=== PATIENT | female | born 1985 | race Caucasian/White ===

== ENCOUNTER 2018-04-26 15:36 | Outpatient (CLI) | payer BC ==
[~2018-04-26 15:36] MED LIST: Gadobenate Dimeglumine 529 MG/1 ML (20ML VIAL) ONE
--- NOTE | 2018-04-26 17:58 | MRI ---
MRI BRAIN AND SELLA WITH AND WITHOUT CONTRAST: Date: 04/26/18 HISTORY: Hyperprolactinemia in 32-year-old female. TECHNIQUE: Multiple sequences obtained in axial, sagittal, and coronal planes; pre and post IV injection of gado linium-based contrast agent: 8 mm MultiHance. In addition to standard whole brain sequences, additional thin slices were obtained through the sella turcica, pre and postcontrast. FINDINGS: The ventricles are normal in size and configuration. There is no major intraaxial signal abnormality , restricted diffusion, abnormal intraaxial enhancement, mass, midline shift or any other mass effect , recent intraaxial hemorrhage, or extraaxial fluid collection. In the left side of the sella turcica, there is an approximately 0.7 x 0.5 cm structure which is T2 h yperintense and T1 hyperintense relative to the rest of the pituitary tissue on precontrast images, a nd has delayed or decreased enhancement relative to the rest of the pituitary tissue. There is no sup rasellar mass. Optic chiasm is normal. Infundibular stalk is midline and normal in thickness. [place] us sinuses are normal. IMPRESSION: 1. Evidence for left-sided pituitary microadenoma. 2. The brain is normal. jn[] POS: LULI
== END 2018-04-26 15:37 | disposition home or self-care (01) ==
LOC: MRI 15:36
PROVIDERS: ATTEND Student in an Organized Health Care Education/Training Program
DX: E22.1 Hyperprolactinemia (principal); D35.2 Benign neoplasm of pituitary gland
CPT/HCPCS: 70553; A9579

== ENCOUNTER 2018-12-14 06:36 | Outpatient (CLI) | payer BC ==
--- NOTE | 2018-12-14 07:46 | ULT ---
US Abdominal History: Unicornuate uterus. Concern for renal abnormality. Comparison: None. Findings: Real-time grayscale and color evaluation of the abdomen was performed. Hepatic echotexture is normal. Visualized portion of the aorta, IVC, and pancreas is normal. Gallbladder wall thickness is normal. No cholelithiasis. Portal vein is patent with antegrade flow. Liver measures 14.7 cm in length. Right kidney measures 9.7 x 4.4 x 5.8 cm without mass, hydronephrosis, or abnormal calcifications. Le ft kidney measures 10.8 x 5.6 x 4.5 cm without mass, hydronephrosis, or abnormal calcifications. Spleen measures 9.9 cm in length. Impression: Normal examination of the abdomen.
== END 2018-12-14 06:37 | disposition home or self-care (01) ==
LOC: BICULT 06:36
PROVIDERS: ATTEND Family Medicine
DX: Q51.4 Unicornate uterus (principal)
CPT/HCPCS: 76700